=== PATIENT | female | born 1980 | race Caucasian/White ===

== ENCOUNTER 2020-10-22 11:36 | Emergency (ER) | payer MEDICARE, SELFPAY ==
[2020-10-22 11:37] VITALS: BP 121/82; PULSE 98; RESP 18; TEMP 36.6; O2SAT 98; BMI 19.2
--- NOTE | 2020-10-22 12:05 | US_ITS ---
STUDY: ABDOMINAL ULTRASOUND - RIGHT UPPER QUADRANT REASON FOR VISIT: Female, 40 years old post prandial pain TECHNIQUE: Ultrasound evaluation of the right upper quadrant was performed with real-time and static shanks-scale imaging. TECHNICAL QUALITY: Adequate. COMPARISON: None. FINDINGS: Liver: The liver measures 14.3 cm. There is normal echogenicity of the liver. The bile ducts are within normal limits. There is hepatic color flow. The direction of portal flow is hepatopetal. There is no demonstrated mass lesion. Gallbladder: Normal distended gallbladder. The gallbladder wall measures 1.6 mm. There is a negative sonographic Montiel''s sign. There is no pericholecystic fluid. There are no gallstones. Common Bile Duct (C.B.D.): The common bile duct measures 6.9 mm. Pancreas: Normal size of the head, body and tail of the pancreas. There is normal echogenicity of the pancreas. There is no demonstrated pancreatic mass or cyst. Right Kidney: Normal size of the right kidney. The right kidney measures 9.5 cm x 4.8 cm x 3.5 cm. Normal renal cortex. The right cortex measures 1.3 cm. There is no demonstrated renal mass or cyst. There is no right hydronephrosis. US/Gallbladder IMPRESSION: Normal right upper quadrant ultrasound examination. Electronically Signed: Pete Epps MD at 14:06 EDT , Service support ,
--- NOTE | 2020-10-22 12:07 | ED.VIS.GI ---
HPI HPI - GI History of Present Illness Chief Complaint: Abd Pain Informant: patient Narrative Narrative: Patient is a 40-year-old female presenting for evaluation of abdominal pain. Patient states for some time she has had pain in her epigastric region after she eats. She states it used to be more diffuse but now it seems to go to her stomach and then follow with the food down as she digested. She states that pain is severe nature will double her over. Of the last anywhere from 6 to 12 hours after eating. She is notes that if she eats soft small food items such as yogurt or soft breads the pain is more manageable. Patient actually lives in [place] it is visiting her family that lives in [place]. 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 Patient remotely had an EGD was but does not recall the results. She used to be on Pepcid but no longer is. She denies any black or blood in her stool. She notes her symptoms are better when she lays on her left hand side. 2 days ago the pain was radiating to her back. She denies any other complaints at this time. She denies any abdominal surgical history. [facility] Medical History Atrial tachycardia Depression Neuromyelitis optica Xrwsr-[id number]-Fxqco syndrome Home Medications citalopram [Celexa] 30 mg PO DAILY 10/22/20 [History Last Taken Unknown] eculizumab 600 mg IV QWEEK 10/22/20 [History Last Taken Unknown] famotidine [Pepcid] 20 mg PO BID #30 tab 10/22/20 [Rx Last Taken Unknown] quetiapine [Seroquel] 50 mg PO QHS 10/22/20 [History Last Taken Unknown] Allergy/AdvReac Type Severity Reaction Status Date / Time Sulfa (Sulfonamide Allergy Hives Verified 10/22/20 11:38 Antibiotics) Social History Smoking Status: Never smoker ROS ROS ED Constitutional Constitutional ED: Denies chills, fever(s) or malaise Eyes Eyes: Denies blurry vision or loss of vision ENT ENT ED: Denies rhinorrhea or sore throat Cardiovascular Cardiovascular: Denies chest pain or dizziness Respiratory/Chest Respiratory/Chest: Denies cough or dyspnea Gastrointestinal Gastrointestinal: Reports abdominal pain; Denies constipation, diarrhea, melena, nausea or vomiting Genitourinary Genitourinary ED: Denies dysuria or hematuria Musculoskeletal Musculoskeletal: Denies arthralgias or myalgias Integumentary Denies rash or wounds Neurologic Neurologic: Denies focal weakness or headache(s) Psychiatric Psychiatric: Denies anxiety or behavioral changes EXAM Physical Exam Const Vital Signs: 10/22/20 11:37 Temperature 97.9 F Temperature Source Temporal Pulse Rate 98 Respiratory Rate 18 Blood Pressure 121/82 H Blood Pressure Mean 95 Pulse Ox 98 Oxygen Delivery Method Room Air Positive well nourished, well developed and no apparent distress General Appearance ED: well developed HEENT Reports normocephalic and moist mucous membranes atraumatic Nose: no nasal discharge General Ear: hearing grossly impaired External Ear: external ears normal Eyes PERRL and EOMs intact bilaterally Neck full ROM and no meningeal signs Chest Wall inspection of chest normal Resp normal respiratory effort and normal air movement Cardio regular rate and regular rhythm GI normal to inspection, nondistended, normoactive bowel sounds GI Narrative: Mild tenderness palpation epigastric region. Negative Montiel sign. No pain at McBurney's point. Inspection: Negative for abdominal distention Auscultation: hypoactive bowel sounds Palpation: soft Extremity normal to inspection and full ROM Neuro oriented x3 and no focal motor deficits Psych mental status grossly normal and thought process normal Skin no rashes or lesions noted and no wounds MDM MDM MDM Narrative Medical decision making narrative: Patient is evaluated for abdominal pain. Tender epigastric region. And it is postprandial nature. It has been worsening and last for hours at a time. She may to the ER today because she spoke to her neurologist that she was not sure if this was related to her MS and he thought she should be evaluated by Dr. Patient [place] out [place] but [place]. On evaluation patient is thin and otherwise well-appearing. She appears nontoxic and does not have any acute pain with abdominal exam. Lab work is normal. Patient does not have any history of abdominal surgery I do not suspect small bowel obstruction as a cause of her pain. I do not think she requires a CT. Right upper quadrant ultrasound obtained to further characterize the gallbladder. It is normal. I do not think she has acute cholecystitis. Is possible she has biliary colic versus gastritis versus peptic ulcer disease. Patient previously was on Pepcid but stopped taking it. She is restarted on Pepcid today. She is counseled she is follow-up with her primary care doctor might require referral to GI for EGD versus HIDA scan. Patient is counseled on signs and symptoms requiring return to the emergency room. Patient verbalizes agreement and understand this plan. Patient discharged home in stable and improved condition. Lab Data Labs: Laboratory Results - last 24 hr 10/22/20 10/22/20 10/22/20 12:10 12:10 13:38 WBC 5.0 RBC 5.06 Hgb 13.6 Hct 42.3 MCV 83.6 MCH 26.9 L MCHC 32.2 RDW Std Deviation 41.3 RDW Coeff of Mandeep 13.5 Plt Count 260 MPV 10.5 Immature Gran % (Auto) 0.000 Neut % (Auto) 44.1 L Lymph % (Auto) 33.7 [place] % (Auto) 10.5 H Eos % (Auto) 10.9 H Baso % (Auto) 0.8 Absolute Neuts (auto) 2.2 Absolute Lymphs (auto) 1.70 Nucleated RBC % 0 Sodium 139 Potassium 3.4 L Chloride 106 Carbon Dioxide 29.0 Anion Gap 4 L BUN 15 Creatinine 0.78 Estim Creat Clear Calc 90.14 Est GFR (MDRD) Af Amer 105 Est GFR (MDRD) Non-Af 87 BUN/Creatinine Ratio 19.2 Glucose 85 Calcium 9.1 Total Bilirubin 0.30 Direct Bilirubin 0.09 AST 13 L ALT 21 Alkaline Phosphatase 105 Total Protein 7.6 Albumin 3.7 Globulin 3.9 Lipase 133 Urine Color Yellow Urine Clarity Clear Urine pH 8.0 Ur Specific Hancock 1.015 Urine Protein Negative Urine Glucose (UA) Normal Urine Ketones Negative Urine Occult Blood Negative Urine Nitrite Negative Urine Bilirubin Negative Urine Urobilinogen Normal Ur Leukocyte Esterase Negative Urine RBC 0 SEEN Urine WBC 0 SEEN Ur Squamous Epith Cells 0-5 SEEN Urine Bacteria 0 SEEN Urine Mucus 0 SEEN Urine Test Negative Radiography Diagnostic Testing: Radiology Impression Gallbladder Ultrasound 10/22/20 12:05 IMPRESSION: Normal right upper quadrant ultrasound examination. Electronically Signed: Pete Epps MD at 14:06 EDT , Service support , Discharge Plan Triage Chief Complaint: Abd Pain ED Provider: Brionna Mccrary Dx/Rx/DC Orders Clinical Impression: Epigastric abdominal pain Instructions: ED Epigastric Pain (Uncertain Cause) Prescriptions: New famotidine [Pepcid] 20 mg tablet 20 mg PO BID Qty: 30 RF: 0 No Action citalopram [Celexa] 20 mg Tablet 30 mg PO DAILY RF: 0 quetiapine [Seroquel] 50 mg Tablet 50 mg PO QHS RF: 0 eculizumab 300 mg/30 mL Solution 600 mg IV QWEEK RF: 0 Referrals: JONATHAN CLAROS [Other] Activity Restrictions/Additional Instructions: When you return home, please follow-up with your primary care doctor for further evaluation of this pain. You might require referral to a GI specialist. Disposition Disposition: Home, self care Discharge Date/Time: 10/22/20 14:52
[2020-10-22 12:26] LABS: Absolute Neutrophil Count 2.2 X10^3/uL (2.0-7.7); Basophil# 0.04 X10^3/uL; Basophil% 0.8 % (0-1); Eosinophil# 0.55 X10^3/uL; Eosinophils% 10.9 % (0-5); Hematocrit 42.3 % (37-47); Hemoglobin 13.6 g/dL (12.0-15.0); Lymphocyte % 33.7 % (19-41); Mean Corp Hgb Conc 32.2 g/dL (32-36); Mean Corpuscular Hgb 26.9 pg (27.0-32.0); Mean Corpuscular Volume 83.6 fL (81-99); Mean Platelet Vol. 10.5 fl (6.2-12.0); Monocyte# 0.53 X10^3/uL; Monocyte% 10.5 % (0-10); NRBC Flagged by Analyzer 0 % (0-5); Neutrophil # 2.22 X10^3/uL (2.7-7.7); Neutrophil % 44.1 % (47-70); Platelet Count 260 K/mm3 (150-450); RBC Distribution Width CV 13.5 % (11.6-14.6); RBC Distribution Width SD 41.3 fl (35.1-43.9); Red Blood Count 5.06 M/mm3 (4.2-5.4)
[2020-10-22 12:51] LABS: AST(SGOT) 13 U/L (15-37); Alanine Aminotransfer ALT/SGPT 21 U/L (13-56); Albumin, Serum 3.7 g/dL (3.2-5.0); Alkaline Phosphatase 105 U/L (45-117); Anion Gap 4 (5-15); BUN 15 mg/dL (7-18); BUN/Creat Ratio 19.2 RATIO (10-20); Bilirubin, Direct 0.09 mg/dL (0.00-0.30); Calcium,Total 9.1 mg/dL (8.5-10.1); Chloride 106 mmol/L (98-107); Creatinine, Serum 0.78 mg/dL (0.55-1.02); EST Glomerular Filtration Rate 87 mL/min (>60); Est Glom Filt Rate - Afr Amer 105 mL/min (>60); Estimated Creatinine Clearance 90.14 ml/min; Globulin 3.9 g/dL (2.2-4.2); Glucose 85 mg/dL (74-106); Lipase 133 U/L (73-393); Potassium 3.4 mmol/L (3.5-5.1); Protein, Total 7.6 g/dL (6.4-8.2); Sodium Level 139 mmol/L (136-145)
[2020-10-22 13:43] LABS: Bacteria 0 SEEN /hpf (None Seen); Mucous, Urine 0 SEEN /hpf (<or=2+); Red Blood Cells-Urine 0 SEEN /hpf (0-5); White Blood Cells 0 SEEN /hpf (0-5)
[2020-10-22 13:46] LABS: Color, Urine Yellow (Yellow); Glucose, Dipstick Normal (Normal); Ketone-Dipstick Negative (Negative); Leukocyte Esterase-Dipstick Negative /ul (Negative); Nitrite-Dipstick Negative (Negative); Occult Blood-Urine Negative /ul (Negative); Protein-Dipstick Negative (Negative); Specific Gravity, Urine 1.015 (1.002-1.030); Urine Bilirubin Dipstick Negative (Negative); Urine Clarity Clear (Clear); Urine Urobilinogen Normal (Normal)
[2020-10-22 13:52] LABS: Internal QC Validated? YES +Cl - CLEAR BKGD; Pregnancy, Urine Negative Negative; Squamous Epithelial Cells - UA 0-5 SEEN /hpf (5-10)
== END 2020-10-22 14:52 | disposition home or self-care (01) ==
PROVIDERS: Emergency Provider Emergency Medicine
DX: R10.13 Epigastric pain (principal); F32.9 Major depressive disorder, single episode, unspecified; Z79.899 Other long term (current) drug therapy
CPT/HCPCS: 76705; 80048; 80076; 81001; 81025; 83690; 85025; 99283